=== PATIENT | female | born 1940 | race African-American/Black ===

== ENCOUNTER 2021-09-23 16:15 | Inpatient (IN) | payer MEDICARE, OTHER ==
[~2021-09-23] VITALS: Ht 167.6 cm; Wt 83.5 kg
[~2021-09-23 16:15] MED LIST: MAXZIDE
[2021-09-23 17:30] LABS: BASOPHILS % 0.3 % (0.0-2.0); EOSINOPHILS % 0.6 % (0.0-5.0); HEMATOCRIT. 39.2 % (36.0-48.0); HEMOGLOBIN. 13.2 g/dL (12.0-16.0); LYMPHOCYTES % 22.3 % (20.0-50.0); MEAN CORPUSCULAR HEMOGLOBIN 30.4 pg (28.0-32.0); MEAN CORPUSCULAR VOLUME 90.2 fL (81.0-99.0); MONOCYTES % 11.9 % (2.0-8.0); NEUTROPHILS % 64.9 % (40.0-76.0); PLATELET 188 x1000/uL (130-400); RED BLOOD CELL COUNT 4.35 mill/uL (4.2-5.4); RED CELL DISTRIBUTION WIDTH 13.2 % (11.6-14.6)
[2021-09-23 17:36] LABS: CHLORIDE 109 mEq/L (98-107)
[2021-09-23 17:45] LABS: ETHANOL BLOOD < 10 mg/dL
[2021-09-23] MEDS ORDERED: TRIA1TAB92 PO (17:53)
[2021-09-23] MEDS ORDERED: LIP40 PO (17:54)
[2021-09-23] MEDS ORDERED: LOSA25TA26 PO (17:54)
[2021-09-23] MEDS ORDERED: POTASSIUM CHLORIDE 20MEQ TABLET SR PO NR ×2 (18:00→21:30)
[2021-09-23] MEDS ORDERED: AMLODIPINE 5MG TABLET PO ONE (18:45)
[2021-09-23] MEDS ORDERED: AMLODIPINE 5MG TABLET PO NR (19:00)
[2021-09-23 19:19] LABS: CLARITY URINE CLEAR (CLEAR); COLOR URINE YELLOW (YELLOW); KETONES URINE NEGATIVE (NEGATIVE); LEUKOCYTE ESTERASE URINE NEGATIVE (NEGATIVE); NITRITE URINE NEGATIVE (NEGATIVE); OCCULT BLOOD URINE NEGATIVE (NEGATIVE); PROTEIN URINE TRACE (NEGATIVE)
[2021-09-23 19:50] LABS: *AMPHETAMINES SCREEN URINE NEGATIVE (NEGATIVE); *BARBITURATES SCREEN URINE NEGATIVE (NEGATIVE); *BENZODIAZEPINES SCREEN URINE NEGATIVE (NEGATIVE); *COCAINE SCREEN URINE NEGATIVE (NEGATIVE); CANNABINOID URINE SCREEN NEGATIVE (NEGATIVE); METHADONE URINE SCREEN NEGATIVE (NEGATIVE); OPIATES URINE SCREEN NEGATIVE (NEGATIVE); PHENCYCLIDINE URINE SCREEN NEGATIVE (NEGATIVE)
[2021-09-23] MEDS ORDERED: ASPIRIN 325MG EC TABLET PO ONE (20:45)
[2021-09-23] MEDS ORDERED: IOHEXOL-350 100 ML BOTTLE ONE (20:46)
[2021-09-23] MEDS ORDERED: CLONIDINE 0.1MG TABLET PO PRN (21:15)
[2021-09-23] MEDS ORDERED: ONDANSETRON HCL 4MG/2ML INJ IV PRN (21:15)
[2021-09-23] MEDS ORDERED: ACETAMINOPHEN 325MG TABLET PO PRN ×2 (21:15)
[2021-09-23] MEDS ORDERED: ZOLPIDEM TARTRATE 5MG TABLET PO PRN (21:15)
[2021-09-23] MEDS ORDERED: DIPHENHYDRAMINE 50MG/ML VIAL IV PRN (21:15)
[2021-09-23] MEDS ORDERED: MAGNESIUM/ALUMINUM HYDROXIDE/SIMETHICONE 30ML UDC PO PRN (21:15)
[2021-09-23] MEDS ORDERED: HYDRALAZINE 20MG/ML VIAL IV PRN (21:30)
[2021-09-23] MEDS: SODIUM CHLORIDE 0.9% INJ 3ML FLUSH IVF SCH (22:14)
[2021-09-24] VITALS (8 sets, daily range): BP systolic 149–180; BP diastolic 61–87
[2021-09-24] MEDS: SODIUM CHLORIDE 0.9% INJ 3ML FLUSH IVF SCH ×2 (06:00→14:00)
[2021-09-24] MEDS: LOSARTAN POTASSIUM 25 MG TABLET PO SCH (08:44)
[2021-09-24] MEDS: ASPIRIN 81MG EC TABLET PO SCH (08:44)
[2021-09-24] MEDS: AMLODIPINE 5MG TABLET PO SCH ×2 (08:44→20:45)
[2021-09-24 08:50] LABS: CHLORIDE 110 mEq/L (98-107)
[2021-09-24 08:57] LABS: HDL CHOLESTEROL 47 mg/dL (40-59); LDL CHOLESTEROL 67 mg/dL (5-100); PHOSPHORUS 2.7 mg/dL (2.5-4.9)
[2021-09-24] MEDS ORDERED: DEXTROSE 50% WATER 50ML SYRINGE IV PRN (17:15)
[2021-09-24] MEDS: INSULIN LISPRO 100 UNITS/ML SUBCUT SCH ×2 (17:40→20:51)
[2021-09-24] MEDS: BLOOD SUGAR DIAGNOSTIC STRIP TEST SCH ×2 (17:46→20:52)
[2021-09-24] MEDS ORDERED: ATORVASTATIN CALCIUM 20MG TABLET PO SCH (21:00)
[2021-09-24] MEDS ORDERED: ATORVASTATIN CALCIUM 40MG TABLET PO SCH (21:00)
[2021-09-25 04:00] VITALS: BP 150/71
[2021-09-25] MEDS: BLOOD SUGAR DIAGNOSTIC STRIP TEST SCH ×2 (05:37→11:57)
[2021-09-25] MEDS: INSULIN LISPRO 100 UNITS/ML SUBCUT SCH ×2 (05:41→11:57)
[2021-09-25] MEDS: SODIUM CHLORIDE 0.9% INJ 3ML FLUSH IVF SCH ×3 (06:04→13:53)
[2021-09-25 08:01] VITALS: BP 148/65
[2021-09-25] MEDS: AMLODIPINE 5MG TABLET PO SCH (08:55)
[2021-09-25] MEDS: LOSARTAN POTASSIUM 25 MG TABLET PO SCH (08:55)
[2021-09-25] MEDS: ASPIRIN 81MG EC TABLET PO SCH (08:56)
[2021-09-25 11:47] VITALS: BP 135/65
[2021-09-25 15:12] VITALS: BP 132/70
== END 2021-09-25 16:40 | disposition home or self-care (01) | DRG 69 ==
LOC: ER 16:15 → MICUSO 19:40 → EDBEDREQTM 20:03 → EDBEDREQ 20:03 → 8WST 09-24 01:47
PROVIDERS: ADMIT Internal Medicine; ATTEND Internal Medicine
DX: G45.9 Transient cerebral ischemic attack, unspecified (principal); E66.01 Morbid (severe) obesity due to excess calories; I10 Essential (primary) hypertension; E87.6 Hypokalemia; E89.0 Postprocedural hypothyroidism; Z90.49 Acquired absence of other specified parts of digestive tract; Z90.710 Acquired absence of both cervix and uterus; Z68.29 Body mass index [BMI] 29.0-29.9, adult
CPT/HCPCS: 36415; 70496; 70498; 70551; 71045; 80048; 80053; 80061; 80305; 80320; 81003; 82962; 83036; 83605; 83735; 84100; 84484; 85025; 93005; 93970; 99291; J1815; Q9967; G0480